=== PATIENT | female | born 1950 | race Asian ===

== ENCOUNTER → 2018-09-08 | Outpatient (CLI) | payer MEDICARE, OTHER ==
[~2018-09-08] MED LIST: ASPI81TA87 PO; ATOR40TA28 PO; EZET10 PO; METF500T7 PO; POTA25TA7 PO
[2018-09-08 15:01] LABS: EOSINOPHILS % (AUTO) 3.7 % (1.0-6.0); HEMATOCRIT 44.1 % (36-46); HEMOGLOBIN 14.8 g/dL (12.0-16.0); LYMPHOCYTES # (AUTO) 1.2 K/uL (1.0-4.8); LYMPHOCYTES % (AUTO) 28.7 % (22.0-44.0); MEAN CORPUSCULAR HEMOGLOBIN 31.5 pg (26.0-34.0); MEAN CORPUSCULAR HGB CONC 33.5 G/dL (31.0-37.0); MEAN CORPUSCULAR VOLUME 94 fL (80-100); MONOCYTES # (AUTO) 0.3 K/uL (0.1-1.0); NEUTROPHILS # (AUTO) 2.5 K/uL (1.8-7.7); NEUTROPHILS % (AUTO) 59.6 % (40.0-70.0); PLATELET COUNT (AUTO) 230 K/uL (150-450); RED CELL DISTRIBUTION WIDTH 12.8 % (11.5-14.5)
[2018-09-08 15:18] LABS: HEMOGLOBIN A1C 7.4 % (4.5-6.2)
[2018-09-08 15:43] LABS: CHOL/HDL RATIO 4.5 (3.9-5.7); THYROID STIMULATING HORMONE 1.26 uIU/mL (0.36-3.74)
[2018-09-09 09:37] LABS: FOLATE SERUM 9.8 ng/mL (5.4-)
== END | disposition home or self-care (01) ==
LOC: LABPV 14:07
PROVIDERS: ATTEND Internal Medicine Infectious Disease
DX: E78.5 Hyperlipidemia, unspecified (principal); E11.69 Type 2 diabetes mellitus with other specified complication; R41.3 Other amnesia
CPT/HCPCS: 82043; 82570; 82607; 82746; 83036; 84443; 86592

== ENCOUNTER → 2018-09-10 | Outpatient (CLI) | payer MEDICARE, OTHER | END | disposition home or self-care (01) | LOC: RADMN 10:08 | PROVIDERS: ATTEND Internal Medicine | DX: I70.0 Atherosclerosis of aorta (principal); I67.2 Cerebral atherosclerosis; J43.9 Emphysema, unspecified | CPT/HCPCS: 70450 ==